=== PATIENT | female | born 1995 | race African-American/Black ===

== ENCOUNTER 2016-10-27 21:56 | Emergency (ER) | payer OTHER ==
[2016-10-27] MEDS ORDERED: TETRACAINE HCL 0.5% OPH SOLN 2 ML OS ONE (21:58)
--- NOTE | 2016-10-27 22:00 | ER Document Report ---
ED Medical Screen (RME) - General Stated Complaint: EYE INJURY Mode of Arrival: Ambulatory Information source: Patient Notes: Patient presents to the emergency department with left eye irritation. Reports she scratched her eye getting to the car this morning. Does not wear contacts. I have greeted and performed a rapid initial assessment of this patient. A comprehensive ED assessment and evaluation of the patient, analysis of test results and completion of the medical decision making process will be conducted by additional ED providers. TRAVEL OUTSIDE OF THE [place] IN LAST 30 DAYS: No - Related Data Allergies/Adverse Reactions: No Known Allergies Allergy (Unverified 01/15/16 16:32)
--- NOTE | 2016-10-27 23:28 | ER Document Report ---
ED Eye Complaint - General Chief Complaint: Eye Problem Stated Complaint: EYE INJURY Time seen by provider: 23:25 Mode of Arrival: Ambulatory Notes: Patient is a 21-year-old female that comes emergency department for chief complaint of left eye pain and irritation. She states she has a sensation of a foreign body in the eye which has not resolved, she states that early in the day she was carrying callahan in the plastic folding holding the callahan came in contact with her eye. She denies visual loss, discharge, she does not wear any visual correction. TRAVEL OUTSIDE OF THE [place] IN LAST 30 DAYS: No - Related Data Allergies/Adverse Reactions: No Known Allergies Allergy (Unverified 01/15/16 16:32) Past Medical History - General Information source: Patient - Social History Smoking Status: Never Smoker Chew tobacco use (# tins/day): No Frequency of alcohol use: None Drug Abuse: None Lives with: Family Family History: Reviewed & Not Pertinent Patient has suicidal ideation: No Patient has homicidal ideation: No - Medical History Medical History: Negative Renal/ Medical History: Denies: Hx Peritoneal Dialysis Surgical Hx: Negative - Immunizations Immunizations up to date: Yes Hx Diphtheria, Pertussis, Tetanus Vaccination: Yes Review of Systems - Review of Systems Constitutional: No symptoms reported EENT: See HPI Cardiovascular: No symptoms reported Respiratory: No symptoms reported Gastrointestinal: No symptoms reported Genitourinary: No symptoms reported Female Genitourinary: No symptoms reported Musculoskeletal: No symptoms reported Skin: No symptoms reported Hematologic/Lymphatic: No symptoms reported Neurological/Psychological: No symptoms reported Physical Exam - Vital signs Vitals: Temp Pulse Resp BP Pulse Ox 98.1 F 84 18 125/76 97 10/27/16 21:57 10/27/16 21:57 10/27/16 21:57 10/27/16 21:57 10/27/16 21:57 - HEENT Head: Normocephalic, Atraumatic Eyes: Normal Conjunctiva: Normal Cornea: Corneal abrasion - 2 corneal abrasions, one at 3:00 and one at 7:00. No embedded foreign bodies, negative William sign, no other abnormalities noted, Flourescein stain uptake. No: Dendrite, Embedded foreign body, Opacified, Superficial foreign body Extraocular movements intact: Yes Eyelashes: Normal Pupils: PERRL Visual acuity- Right eye: 20/15 Visual acuity- Left eye: 20/30 Visual acuity- Both eyes: 20/13 Corrective lenses worn: No Anterior chamber: Normal. No: Hyphema Ears: Normal External canal: Normal Tympanic membrane: Normal Sinus: Normal Nasal: Normal Mouth/Lips: Normal Mucous membranes: Normal Pharynx: Normal Neck: Normal Course - Re-evaluation Re-evalutation: Patient well-appearing, patient denying any visual loss, visual acuity is not concerning, no embedded foreign bodies, examination is consistent with 2 corneal abrasions but no other abnormalities. Referred to ophthalmology, starting on anabiotic eyedrops, discussed follow-up and return precautions, patient states understanding and agreement. - Vital Signs Vital signs: Temp Pulse Resp BP Pulse Ox 97.9 F 83 15 109/72 99 10/28/16 00:40 10/28/16 00:40 10/28/16 00:40 10/28/16 00:40 10/28/16 00:40 Discharge - Discharge Clinical Impression: Eye pain Qualifiers: Laterality: left Qualified Code(s): H57.12 - Ocular pain, left eye Corneal abrasion Qualifiers: Encounter type: initial encounter Laterality: left Qualified Code(s): S05.02XA - Injury of conjunctiva and corneal abrasion without foreign body, left eye, initial encounter Condition: Stable Disposition: HOME, SELF-CARE Additional Instructions: Examination is consistent with corneal abrasions. Use the antibiotic eyedrops given, use the pain medication if needed, use the antibiotic eyedrops as directed. Please follow-up in 2-3 days for a reevaluation by ophthalmology. Return to the ED for any concerning or worsening symptoms including severe pain , loss of vision, swelling of the eye, etc. See additional instructions below. You have a corneal abrasion, a scratch on the surface of the eye. The pain of a corneal abrasion feels like a sharp particle in the eye. Usually, antibiotics are placed in the eye to prevent infection. Occasionally, medication will be placed in the eye to dilate the pupil. This is done to relieve some of your discomfort and is only temporary. Pain medication may be required. Don't drive or operate machinery until you have the use of both your eyes. The abrasion usually is healed in one or two days. A follow-up examination to confirm healing is recommended. Call the doctor or return at once if you develop severe pain, decreasing vision, eye swelling, or purulent drainage. Prescriptions: Besifloxacin HCl [Besivance Drops] 1 drop OP TID #1 bottle Ketorolac Tromethamine [Acular] 5 ml OP ASDIR PRN #1 drops PRN Reason: Forms: Return to Work Referrals: DARION SARAVIA MD [ACTIVE STAFF] - 10/29/16
[2016-10-27] MEDS ORDERED: BESIFLOXACIN HCL 0.6% OPH SUSP 5 ML BOTTLE OS ONE (23:59)
[2016-10-28] MEDS ORDERED: HYDROCODONE/ACETAMINOPHEN 5-325 MG 6 TAB/DSPK PO PRN
[2016-10-28 00:41] VITALS: BP 109/72
== END 2016-10-28 00:40 | disposition home or self-care (01) ==
LOC: ER 21:56
DX: S05.02XA Injury of conjunctiva and corneal abrasion without foreign body, left eye, initial encounter (principal); H57.12 Ocular pain, left eye; W22.8XXA Striking against or struck by other objects, initial encounter
CPT/HCPCS: 99283